=== PATIENT | male | born 1985 | race Caucasian/White ===

== ENCOUNTER → 2016-08-28 | Outpatient (CLI) | payer OTHER ==
[~2016-08-28] MED LIST: IOPAMIDOL (ISOVUE-300) 100 ML BTL ONE
== END ==
LOC: CIMAGING 09:24
PROVIDERS: ATTEND Physician Assistant
DX: N28.1 Cyst of kidney, acquired (principal); R10.31 Right lower quadrant pain; R19.4 Change in bowel habit; R63.0 Anorexia
CPT/HCPCS: 74177-PO; Q9967